=== PATIENT | male | born 1990 | race Caucasian/White ===

== ENCOUNTER 2018-06-25 22:00 | Observation (INO) ==
--- NOTE | 2018-06-25 22:32 | Emergency Department Note ---
Disposition Clinical Impression: Suicidal ideation Schizophrenia Qualifiers: Schizophrenia type: unspecified Qualified Code(s): F20.9 - Schizophrenia, unspecified Disposition: Still a Patient Condition: Fair Forms: ED Satisfaction Letter General Adult HPI - General Chief complaint: ED Psychiatric Symptoms Stated complaint: SI/Hearing things Time Seen by Provider: 06/25/18 22:12 Source: patient Limitations: no limitations - History of Present Illness HPI Narrative: Patient presents with suicidal thoughts status post suicide attempt today. He said that he tried to hang himself, but did not that he tied to slip through when he tried to hang himself. He then tried to wrap fishing wire around his wrists, but that failed as well. He says the voices are not telling him to kill himself but cannot really tell me what the voices are saying. He has been dosed with schizophrenia, is on Abilify and other medications, says they asked to make symptoms worse rather than helping him. Says he never misses doses. Denies any alcohol or drug use today or in the recent past. He does have a history of suicide attempts in the past. Denies any physical or medical issues other than his chronic left knee pain which is unchanged. No fever, rash, pain Pain Scale: 8 - Related Data Home Medications Medication Instructions Recorded Confirmed Aripiprazole [Abilify] 15 mg PO DAILY 06/25/18 06/25/18 Doxepin [Sinequan] 25 mg PO HS 06/25/18 06/25/18 Quetiapine Fumarate [Seroquel] 50 mg PO HS 06/25/18 06/25/18 RisperiDONE [Risperdal] 0.5 mg PO BID 06/25/18 06/25/18 hydrOXYzine HCl [Hydroxyzine HCl] 25 mg PO Q6H PRN 06/25/18 06/25/18 Allergies Allergy/AdvReac Type Severity Reaction Status Date / Time No Known Allergies Allergy Verified 06/25/18 22:05 All systems ED: reviewed and negative except as stated. (i DID ASK) Past Medical History - Past Medical History Medical history: Reports: hepatitis, other Surgical history: Reports: no surgical history Psychiatric history: Reports: anxiety, ADHD, depression, PTSD, other - Social History Smoking Status: Current every day smoker Smokeless Tobacco Status: No Alcohol use: Reports: none Drug use: Reports: marijuana, methamphetamine, IV Drug Use Physical Exam Vital signs noted, please see nurses notes. General: Well-developed, well-nourished patient sitting up in bed who appears non-toxic. Head: Atraumatic, normocephalic. Eyes: Sclera anicteric. ENT: Mucous membranes moist. Respiratory: Normal respiratory pattern without respiratory distress. Skin: Warm and dry, no appreciable rash. Neurological: Awake and alert with normal speech, gait and mental status. No focal deficits or lateralizing signs. Musculoskeletal: No swelling, erythema, warmth or tenderness to the left knee. Psychiatric: Good eye contact. He is calm and cooperative with the interview. - General Limitations: no limitations General appearance: alert Course Vital Signs Temperature 97.9 F 06/25/18 22:05 Pulse Rate 118 06/25/18 22:05 Respiratory Rate 20 06/25/18 22:05 Blood Pressure 131/94 06/25/18 22:05 O2 Sat by Pulse Oximetry 97 06/25/18 22:05 Temperature 97.9 F 06/25/18 22:18 Pulse Rate 118 06/25/18 22:18 Respiratory Rate 20 06/25/18 22:18 Blood Pressure 131/94 06/25/18 22:18 O2 Sat by Pulse Oximetry 97 06/25/18 22:18 Oxygen Delivery Oxygen Delivery Room Air Medical Decision Making - Lab Data Result diagrams: 06/25/18 22:35 06/25/18 22:35 Lab Results 06/25/18 06/25/18 06/25/18 Range/Units 22:27 22:27 22:35 WBC 12.6 H (4.3-11.1) K/mcL RBC 5.43 (4.19-5.50) M/mcL Hgb 14.1 (12.9-16.9) g/dL Hct 42.4 (37.5-50.1) % MCV 78.1 L (83.0-100.0) fL MCH 26.0 L (28.0-33.3) pg MCHC 33.3 (31.6-35.5) g/dL RDW 14.1 (11.5-14.5) % Plt Count 263 (140-400) K/mcL MPV 8.8 L (9.4-12.4) fL Immature Gran % 0.3 (0-4) % Seg Neutrophils % 67.4 % Lymphocytes % 22.4 % Monocytes % 7.6 % Eosinophils % 1.6 % Basophils % 0.7 % Neutrophils # 8.5 (1.6-8.9) K/mcL Lymphocytes # 2.8 (0.6-4.6) K/mcL Monocytes # 1.0 (0.0-1.3) K/mcL Eosinophils # 0.2 (0.0-0.6) K/mcL Basophils # 0.1 (0.0-0.2) K/mcL Sodium (136-145) mEq/L Potassium (3.5-5.1) mEq/L Chloride (98-107) mEq/L Carbon Dioxide (23-29) mEq/L BUN (6-20) mg/dL Creatinine (0.70-1.30) mg/dL Est GFR ( Amer) (> 60) Est GFR (Non-Af Amer) (> 60) BUN/Creatinine Ratio (6-26) Glucose (70-105) mg/dL Calculated Osmolality (280-300) Calcium (8.6-10.3) mg/dL Urine Color Yellow (Yellow) Urine Clarity Clear (Clear) Urine pH 6.0 (5.0-8.0) pH Units Ur Specific [place] 1.008 L (1.010-1.025) Urine Protein Negative (Neg-Trace) mg/dL Urine Glucose (UA) Normal (Normal) mg/dL Urine Ketones Negative (Negative) mg/dL Urine Blood Negative (Negative) Urine Nitrite Negative (Negative) Urine Bilirubin Negative (Negative) Urine Urobilinogen Normal (Normal) mg/dL Ur Leukocyte Esterase Negative (Negative) Salicylates (15.0-30.0) mg/dL Urine Opiates Screen Negative (Hlwcmn=360) ng/mL Acetaminophen (10-20) mcg/mL Ur Barbiturates Screen Negative (Mhcbds=834) ng/mL Ur Phencyclidine Scrn Negative (Cutoff=25) ng/mL Ur Amphetamines Screen Negative (Odqksr=4114) ng/mL U Benzodiazepines Scrn Negative (Fkxlvg=906) ng/mL Urine Cocaine Screen Negative (Cutoff= 300) ng/mL U Marijuana (THC) Screen Negative (Cutoff = 50) ng/mL Ur Drug Screen Interp See Below Ethyl Alcohol (Less than 10) mg/dL 06/25/18 Range/Units 22:35 WBC (4.3-11.1) K/mcL RBC (4.19-5.50) M/mcL Hgb (12.9-16.9) g/dL Hct (37.5-50.1) % MCV (83.0-100.0) fL MCH (28.0-33.3) pg MCHC (31.6-35.5) g/dL RDW (11.5-14.5) % Plt Count (140-400) K/mcL MPV (9.4-12.4) fL Immature Gran % (0-4) % Seg Neutrophils % % Lymphocytes % % Monocytes % % Eosinophils % % Basophils % % Neutrophils # (1.6-8.9) K/mcL Lymphocytes # (0.6-4.6) K/mcL Monocytes # (0.0-1.3) K/mcL Eosinophils # (0.0-0.6) K/mcL Basophils # (0.0-0.2) K/mcL Sodium 140 (136-145) mEq/L Potassium 3.6 (3.5-5.1) mEq/L Chloride 108 H (98-107) mEq/L Carbon Dioxide 23 (23-29) mEq/L BUN 15 (6-20) mg/dL Creatinine 0.87 (0.70-1.30) mg/dL Est GFR ( Amer) > 60 (> 60) Est GFR (Non-Af Amer) > 60 (> 60) BUN/Creatinine Ratio 17 (6-26) Glucose 98 (70-105) mg/dL Calculated Osmolality 291 (280-300) Calcium 9.2 (8.6-10.3) mg/dL Urine Color (Yellow) Urine Clarity (Clear) Urine pH (5.0-8.0) pH Units Ur Specific [place] (1.010-1.025) Urine Protein (Neg-Trace) mg/dL Urine Glucose (UA) (Normal) mg/dL Urine Ketones (Negative) mg/dL Urine Blood (Negative) Urine Nitrite (Negative) Urine Bilirubin (Negative) Urine Urobilinogen (Normal) mg/dL Ur Leukocyte Esterase (Negative) Salicylates < 2.5 L (15.0-30.0) mg/dL Urine Opiates Screen (Umlnwb=952) ng/mL Acetaminophen < 10 L (10-20) mcg/mL Ur Barbiturates Screen (Aubdla=912) ng/mL Ur Phencyclidine Scrn (Cutoff=25) ng/mL Ur Amphetamines Screen (Camtuj=8597) ng/mL U Benzodiazepines Scrn (Jninbq=495) ng/mL Urine Cocaine Screen (Cutoff= 300) ng/mL U Marijuana (THC) Screen (Cutoff = 50) ng/mL Ur Drug Screen Interp Ethyl Alcohol < 10 (Less than 10) mg/dL
[2018-06-25 22:43] LABS: Bilirubin,Urine Negative (Negative); Blood,Urine Negative (Negative); Clarity,Urine Clear (Clear); Color,Urine Yellow (Yellow); Glucose,Urine (UA) Normal (Normal); Ketones,Urine Negative (Negative); Leukocyte Esterase,Urine Negative (Negative); Nitrite,Urine Negative (Negative); Protein,Urine Negative (Neg-Trace); Specific Gravity,Urine 1.008 (1.010-1.025); Urobilinogen,Urine Normal (Normal)
[2018-06-25 22:48] LABS: Basophils # 0.1 K/mcL (0.0-0.2); Basophils % 0.7 %; Eosinophils # 0.2 K/mcL (0.0-0.6); Eosinophils % 1.6 %; Hematocrit 42.4 % (37.5-50.1); Hemoglobin 14.1 g/dL (12.9-16.9); Immature Granulocytes % 0.3 % (0-4); Lymphocytes # 2.8 K/mcL (0.6-4.6); Lymphocytes % 22.4 %; Mean Corpuscular HGB Conc 33.3 g/dL (31.6-35.5); Mean Corpuscular Volume 78.1 fL (83.0-100.0); Mean Platelet Volume 8.8 fL (9.4-12.4); Monocytes % 7.6 %; Neutrophils # 8.5 K/mcL (1.6-8.9); Platelet Count 263 K/mcL (140-400); Red Blood Count 5.43 M/mcL (4.19-5.50); Red Cell Distribution Width 14.1 % (11.5-14.5); Segmented Neutrophils % 67.4 %
[2018-06-25 22:56] LABS: Amphetamine Screen,Urine Negative ng/mL (Cutoff=1000); Barbiturate Screen,Urine Negative ng/mL (Cutoff=200); Benzodiazepines Screen,Urine Negative ng/mL (Cutoff=200); Cannabinoid Screen,Urine Negative ng/mL (Cutoff = 50); Cocaine Screen,Urine Negative ng/mL (Cutoff= 300); Opiate Screen,Urine Negative ng/mL (Cutoff=300); Phencyclidine Screen,Urine Negative ng/mL (Cutoff=25)
[2018-06-25 23:07] LABS: Acetaminophen < 10 mcg/mL (10-20); BUN/Creatinine Ratio 17 (6-26); Blood Urea Nitrogen 15 mg/dL (6-20); Calcium 9.2 mg/dL (8.6-10.3); Carbon Dioxide 23 mEq/L (23-29); Chloride 108 mEq/L (98-107); Ethanol < 10 mg/dL (Less than 10); Glucose 98 mg/dL (70-105); Osmolality,Calculated 291 (280-300); Potassium 3.6 mEq/L (3.5-5.1); Salicylate < 2.5 mg/dL (15.0-30.0); Sodium 140 mEq/L (136-145); eGFR For Non-African Americans > 60 (> 60)
--- NOTE | 2018-06-26 00:41 | Emergency Department Note ---
Disposition Clinical Impression: Suicidal ideation Schizophrenia Qualifiers: Schizophrenia type: unspecified Qualified Code(s): F20.9 - Schizophrenia, unspecified Disposition: Admitted As Inpatient Condition: Fair Referrals: NONE,PCP [Primary Care Provider] - Forms: ED Satisfaction Letter General Adult HPI - General Chief complaint: ED Psychiatric Symptoms Stated complaint: SI/Hearing things Time Seen by Provider: 06/25/18 22:12 Source: patient Limitations: no limitations - History of Present Illness Pain Scale: 8 - Related Data Home Medications Medication Instructions Recorded Confirmed Aripiprazole [Abilify] 15 mg PO DAILY 06/25/18 06/25/18 Doxepin [Sinequan] 25 mg PO HS 06/25/18 06/25/18 Quetiapine Fumarate [Seroquel] 50 mg PO HS 06/25/18 06/25/18 RisperiDONE [Risperdal] 0.5 mg PO BID 06/25/18 06/25/18 hydrOXYzine HCl [Hydroxyzine HCl] 25 mg PO Q6H PRN 06/25/18 06/25/18 Allergies Allergy/AdvReac Type Severity Reaction Status Date / Time No Known Allergies Allergy Verified 06/25/18 22:05 Past Medical History - Past Medical History Medical history: Reports: hepatitis, other Surgical history: Reports: no surgical history Psychiatric history: Reports: anxiety, ADHD, depression, PTSD, other - Social History Smoking Status: Current every day smoker Smokeless Tobacco Status: No Alcohol use: Reports: none Drug use: Reports: marijuana, methamphetamine, IV Drug Use Physical Exam - General Limitations: no limitations General appearance: alert Course Vital Signs Temperature 97.9 F 06/25/18 22:05 Pulse Rate 118 06/25/18 22:05 Respiratory Rate 20 06/25/18 22:05 Blood Pressure 131/94 06/25/18 22:05 O2 Sat by Pulse Oximetry 97 06/25/18 22:05 Temperature 97.9 F 06/25/18 22:18 Pulse Rate 118 06/25/18 22:18 Respiratory Rate 20 06/25/18 22:18 Blood Pressure 131/94 06/25/18 22:18 O2 Sat by Pulse Oximetry 97 06/25/18 22:18 Oxygen Delivery Oxygen Delivery Room Air Medical Decision Making - Lab Data Result diagrams: 06/25/18 22:35 06/25/18 22:35 Lab Results 06/25/18 06/25/18 06/25/18 Range/Units 22:27 22:27 22:35 WBC 12.6 H (4.3-11.1) K/mcL RBC 5.43 (4.19-5.50) M/mcL Hgb 14.1 (12.9-16.9) g/dL Hct 42.4 (37.5-50.1) % MCV 78.1 L (83.0-100.0) fL MCH 26.0 L (28.0-33.3) pg MCHC 33.3 (31.6-35.5) g/dL RDW 14.1 (11.5-14.5) % Plt Count 263 (140-400) K/mcL MPV 8.8 L (9.4-12.4) fL Immature Gran % 0.3 (0-4) % Seg Neutrophils % 67.4 % Lymphocytes % 22.4 % Monocytes % 7.6 % Eosinophils % 1.6 % Basophils % 0.7 % Neutrophils # 8.5 (1.6-8.9) K/mcL Lymphocytes # 2.8 (0.6-4.6) K/mcL Monocytes # 1.0 (0.0-1.3) K/mcL Eosinophils # 0.2 (0.0-0.6) K/mcL Basophils # 0.1 (0.0-0.2) K/mcL Sodium (136-145) mEq/L Potassium (3.5-5.1) mEq/L Chloride (98-107) mEq/L Carbon Dioxide (23-29) mEq/L BUN (6-20) mg/dL Creatinine (0.70-1.30) mg/dL Est GFR ( Amer) (> 60) Est GFR (Non-Af Amer) (> 60) BUN/Creatinine Ratio (6-26) Glucose (70-105) mg/dL Calculated Osmolality (280-300) Calcium (8.6-10.3) mg/dL Urine Color Yellow (Yellow) Urine Clarity Clear (Clear) Urine pH 6.0 (5.0-8.0) pH Units Ur Specific [place] 1.008 L (1.010-1.025) Urine Protein Negative (Neg-Trace) mg/dL Urine Glucose (UA) Normal (Normal) mg/dL Urine Ketones Negative (Negative) mg/dL Urine Blood Negative (Negative) Urine Nitrite Negative (Negative) Urine Bilirubin Negative (Negative) Urine Urobilinogen Normal (Normal) mg/dL Ur Leukocyte Esterase Negative (Negative) Salicylates (15.0-30.0) mg/dL Urine Opiates Screen Negative (Ooglba=088) ng/mL Acetaminophen (10-20) mcg/mL Ur Barbiturates Screen Negative (Cxifmr=934) ng/mL Ur Phencyclidine Scrn Negative (Cutoff=25) ng/mL Ur Amphetamines Screen Negative (Klgsto=3526) ng/mL U Benzodiazepines Scrn Negative (Mtvojx=177) ng/mL Urine Cocaine Screen Negative (Cutoff= 300) ng/mL U Marijuana (THC) Screen Negative (Cutoff = 50) ng/mL Ur Drug Screen Interp See Below Ethyl Alcohol (Less than 10) mg/dL 06/25/18 Range/Units 22:35 WBC (4.3-11.1) K/mcL RBC (4.19-5.50) M/mcL Hgb (12.9-16.9) g/dL Hct (37.5-50.1) % MCV (83.0-100.0) fL MCH (28.0-33.3) pg MCHC (31.6-35.5) g/dL RDW (11.5-14.5) % Plt Count (140-400) K/mcL MPV (9.4-12.4) fL Immature Gran % (0-4) % Seg Neutrophils % % Lymphocytes % % Monocytes % % Eosinophils % % Basophils % % Neutrophils # (1.6-8.9) K/mcL Lymphocytes # (0.6-4.6) K/mcL Monocytes # (0.0-1.3) K/mcL Eosinophils # (0.0-0.6) K/mcL Basophils # (0.0-0.2) K/mcL Sodium 140 (136-145) mEq/L Potassium 3.6 (3.5-5.1) mEq/L Chloride 108 H (98-107) mEq/L Carbon Dioxide 23 (23-29) mEq/L BUN 15 (6-20) mg/dL Creatinine 0.87 (0.70-1.30) mg/dL Est GFR ( Amer) > 60 (> 60) Est GFR (Non-Af Amer) > 60 (> 60) BUN/Creatinine Ratio 17 (6-26) Glucose 98 (70-105) mg/dL Calculated Osmolality 291 (280-300) Calcium 9.2 (8.6-10.3) mg/dL Urine Color (Yellow) Urine Clarity (Clear) Urine pH (5.0-8.0) pH Units Ur Specific [place] (1.010-1.025) Urine Protein (Neg-Trace) mg/dL Urine Glucose (UA) (Normal) mg/dL Urine Ketones (Negative) mg/dL Urine Blood (Negative) Urine Nitrite (Negative) Urine Bilirubin (Negative) Urine Urobilinogen (Normal) mg/dL Ur Leukocyte Esterase (Negative) Salicylates < 2.5 L (15.0-30.0) mg/dL Urine Opiates Screen (Hxiesu=147) ng/mL Acetaminophen < 10 L (10-20) mcg/mL Ur Barbiturates Screen (Wuzjhv=323) ng/mL Ur Phencyclidine Scrn (Cutoff=25) ng/mL Ur Amphetamines Screen (Drbbul=8471) ng/mL U Benzodiazepines Scrn (Jpizks=298) ng/mL Urine Cocaine Screen (Cutoff= 300) ng/mL U Marijuana (THC) Screen (Cutoff = 50) ng/mL Ur Drug Screen Interp Ethyl Alcohol < 10 (Less than 10) mg/dL
[2018-06-26] MEDS ORDERED: *HR* LORazepam 2 MG/ML VIAL IM PRN (01:24)
[2018-06-26] MEDS ORDERED: Mag Hydrox/Al Hydrox/Simeth 30 ML UDC PO PRN (01:24)
[2018-06-26] MEDS ORDERED: Ibuprofen 400 MG TABLET PO PRN (01:24)
[2018-06-26] MEDS ORDERED: Nicotine 2 MG GUM BC PRN (01:24)
[2018-06-26] MEDS ORDERED: *HR* LORazepam 1 MG TABLET PO PRN (01:24)
[2018-06-26] MEDS ORDERED: Haloperidol Lactate 5 MG/ML VIAL IM PRN (01:24)
[2018-06-26] MEDS ORDERED: MOM Conc 10 ML UD.LIQ PO PRN (01:24)
[2018-06-26] MEDS ORDERED: hydrOXYzine pamoate 25 MG CAPSULE PO PRN (01:28)
[2018-06-26] MEDS: risperiDONE 0.25 MG TABLET PO SCH ×2 (01:54→09:51)
[2018-06-26] MEDS ORDERED: ARIPiprazole 10 MG TABLET PO SCH (09:00)
[2018-06-26 09:49] VITALS: BP 123/84
--- NOTE | 2018-06-26 10:45 | Psychiatry History & Physical ---
Addendum entered and electronically signed by Shivani Coronado 06/26/18 13:30: Please note patient's affect was erroneously stated. His affect was constricted. He also had decreased prosody. Original Note: Date of Encounter: 06/26/18 Time of Encounter: 10:40 History of Present Illness Patient Stated Chief Complaint: "not knowing what medications I was on" Medicare Admission Attestation: For traditional Medicare patients the provided hospital inpatient services are reasonable and necessary and in the case of services not specified as inpatient-only under 42 CFR 419.22 (n), that they are appropriately provided as inpatient services in accordance 42 CFR 412.3. For Critical Access Hospital the patient may reasonably be expected to be discharged or transferred to a hospital within 96 hours after admission to the Critical Access Hospital. Admitted From: Emergency Dept Plans for Post Hospital Care: Home History of Present Illness: Mr. Quiñonez is a 28 year old male with a past psychiatric history of anxiety and schizophrenia from this hospital, who presented with suicidal ideation. ED report say that he said he tried to hang himself and then tried to cut his wrists by cutting off circulation with tight bands. He also reported auditory hallucinations yesterday of hearing "voices." He denies that he attempted suicide, stating that he only "thought of it." He reports that he would only suicide by an overdose on carfentanyl, and reports he did not say he suicided in the ED. He denies that he is depressed, stating that he is not always depressed when he has SI. He reports that he does not know why he was having SI. He cannot give an explanation as to a stressor or a thought that initiated the suicidal ideation. He reports getting katty out of life "sometimes," reporting that he does not know why he does not feel more katty. He denies issues with sleep and appetite. He denies issues with concentration and energy. He denies feelings of hopelessness or worthlessness. He denies current SI, HI, AH, and VH. He reports that he has had AH and VH before due to substance use. He reports that he "barely" has thoughts of suicide. He denies significant intent when he does thoughts of suicide. He denies that he has ever attempted suicide. He does report a chronic plan of overdosing on carfentanyl. He denies having access to firearms. He reports protective factors of his "son" who he does not see often. Patient's mental health has not been treated in the last 8 years. He reports that he has been sober for 7 months and has been at an inpatient rehabilitation program for the past few weeks but left. He has been homeless for 8 months and is attempting to get to his aunt's home, who has agreed to let him live with her. Past Med Surg Social Fam HX - Past Medical History Source: patient Medical history: hepatitis (Hepatitis C) - Past Psychiatric History Psychiatric history: Reports: schizophrenia, previous psychiatric hospitalization Past psychiatric history details: First contract: teenager but does not know why Past Diagnoses: "I have no idea" Current Provider: Lisseth Piña; does not know providers Past hospitalizations: 2 times, the last time being last year Suicide history. Reports intermittent but not often SI without knowledge of triggers. 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 He reports having 1 son, who he sees occasionally. He denies having a job. He reports his highest level of education is the 9th grade. He identifies aa a Satanist. He denies a history of legal issues. He denies a history of sexual, physical, or emotional abuse. Medications & Allergies Aripiprazole [Abilify] 15 mg PO DAILY 06/25/18 [History] Quetiapine Fumarate [Seroquel] 50 mg PO HS 06/25/18 [History] hydrOXYzine HCl [Hydroxyzine HCl] 25 mg PO Q6H PRN 06/25/18 [History] Allergy/AdvReac Type Severity Reaction Status Date / Time No Known Allergies Allergy Verified 06/25/18 22:05 Review of Systems Constitutional: Denies: fever, chills, weakness, weight change, night sweats Eyes: Denies: eye pain, eye discharge, vision change Ears, Nose, Throat: Denies: ear pain, throat pain, dental pain, hearing loss, epistaxis, congestion, dysphagia Cardiovascular: Denies: chest pain, palpitations, dyspnea on exertion, orthopnea, edema, syncope Respiratory: Denies: cough, dyspnea, wheezes, hemoptysis, stridor, sputum production Gastrointestinal: Denies: abdominal pain, nausea, vomiting, diarrhea, constipation, hematemisis, melena, hematochezia Genitourinary male: Denies: urgency, dysuria, frequency, hematuria, discharge, testicular pain, genital lesions Musculoskeletal: Denies: back pain, joint swelling, joint pain, myalgia Integumentary: Denies: rash, lesions, pruritus, breast mass, nipple discharge Neurological: Reports: confusion (Fogginess due to medications). Denies: headache, weakness, numbness, paresthesias, memory loss, abnormal gait, vertigo Psychiatric: Reports: anhedonia, confusion (Fogginess due to medications). Denies: depression, anxiety, abnormal sleep pattern, suicidal ideation, change in appetite, homicidal ideation, auditory hallucinations, visual hallucinations, difficulty concentrating, hopelessness Endocrine: Denies: fatigue, heat or cold intolerance, polydipsia, polyuria Hematologic/Lymphatic: Denies: easy bleeding, easy bruising, lymphadenopathy Allergic/Immunologic: Denies: facial swelling, urticaria, itchy eyes Exam - HEENT Head exam IM: Present: atraumatic Eye exam IM: Present: EOMI, normal appearance ENT exam IM: Present: normal exam - Neurological Neurological exam: Present: alert - Respiratory Respiratory exam IM: Present: CTAB (grossly. respirations rhythmic) - GI/Abdominal GI/Abdominal exam IM: Present: soft. Absent: tenderness - Extremities Extremities exam IM: Present: normal inspection - Skin Skin exam IM: Present: dry - Constitutional Vitals: Temp Pulse Resp BP Pulse Ox 98.3 F 114 16 123/84 95 06/26/18 09:00 06/26/18 09:00 06/26/18 09:00 06/26/18 09:00 06/26/18 09:00 General appearance: age & developmentally appropriate, well-groomed, well-n ourished - Musculoskeletal Gait: other (not assessed) Station: relaxed Strength & Tone: normal for patient (grossly) - Psychiatric Patient Orientation: Yes Person, Yes Time, Yes Place, Yes Circumstance Level of alertness: Alert, Follows commands Behavior: calm, cooperative Psychomotor activity: Normal Eye Contact: Maintains Eye Contact Mood Description: Euthymic/stable Affect description: congruent with mood, full range Speech Volume: Normal Speech pattern: normal rate, normal rhythm, normal tone, fluent, spontaneous Language & Vocabulary: consistent with education Thought Process: Linear, Goal Oriented Thought Content: No Suicidal ideation, No Homicidal ideation, No Overt delusions Perceptual Disturbances: No Auditory hallucinations, No Visual hallucinations Attention Span Ability: Capable of Focused Attention Memory Description: Grossly Intact Patient Reliability: Reliable Historian Fund of knowledge: Yes abstraction ability, Yes average, Yes aware of current events Intelligence Estimate: Average Judgment: Limited Insight: Partial Results - Drug Levels and Toxicology Drug Levels and Toxicology: Drug Levels and Toxicity 06/25/18 06/25/18 22:27 22:35 Urine Opiates Screen Negative Acetaminophen < 10 L Ur Barbiturates Screen Negative Ur Phencyclidine Scrn Negative Ur Amphetamines Screen Negative U Benzodiazepines Scrn Negative Urine Cocaine Screen Negative U Marijuana (THC) Screen Negative Ethyl Alcohol < 10 - Labs Labs: Laboratory Last Values WBC 12.6 K/mcL (4.3-11.1) H 06/25/18 22:35 RBC 5.43 M/mcL (4.19-5.50) 06/25/18 22:35 Hgb 14.1 g/dL (12.9-16.9) 06/25/18 22:35 Hct 42.4 % (37.5-50.1) 06/25/18 22:35 MCV 78.1 fL (83.0-100.0) L 06/25/18 22:35 MCH 26.0 pg (28.0-33.3) L 06/25/18 22:35 MCHC 33.3 g/dL (31.6-35.5) 06/25/18 22:35 RDW 14.1 % (11.5-14.5) 06/25/18 22:35 Plt Count 263 K/mcL (140-400) 06/25/18 22:35 MPV 8.8 fL (9.4-12.4) L 06/25/18 22:35 Immature Gran % 0.3 % (0-4) 06/25/18 22:35 Seg Neutrophils % 67.4 % 06/25/18 22:35 Lymphocytes % 22.4 % 06/25/18 22:35 Monocytes % 7.6 % 06/25/18 22:35 Eosinophils % 1.6 % 06/25/18 22:35 Basophils % 0.7 % 06/25/18 22:35 Neutrophils # 8.5 K/mcL (1.6-8.9) 06/25/18 22:35 Lymphocytes # 2.8 K/mcL (0.6-4.6) 06/25/18 22:35 Monocytes # 1.0 K/mcL (0.0-1.3) 06/25/18 22:35 Eosinophils # 0.2 K/mcL (0.0-0.6) 06/25/18 22:35 Basophils # 0.1 K/mcL (0.0-0.2) 06/25/18 22:35 Sodium 140 mEq/L (136-145) 06/25/18 22:35 Potassium 3.6 mEq/L (3.5-5.1) 06/25/18 22:35 Chloride 108 mEq/L (98-107) H 06/25/18 22:35 Carbon Dioxide 23 mEq/L (23-29) 06/25/18 22:35 BUN 15 mg/dL (6-20) 06/25/18 22:35 Creatinine 0.87 mg/dL (0.70-1.30) 06/25/18 22:35 Est GFR ( Amer) > 60 (> 60) 06/25/18 22:35 Est GFR (Non-Af Amer) > 60 (> 60) 06/25/18 22:35 BUN/Creatinine Ratio 17 (6-26) 06/25/18 22:35 Glucose 98 mg/dL (70-105) 06/25/18 22:35 Calculated Osmolality 291 (280-300) 06/25/18 22:35 Calcium 9.2 mg/dL (8.6-10.3) 06/25/18 22:35 Urine Color Yellow (Yellow) 06/25/18 22:27 Urine Clarity Clear (Clear) 06/25/18 22:27 Urine pH 6.0 pH Units (5.0-8.0) 06/25/18 22:27 Ur Specific [place] 1.008 (1.010-1.025) L 06/25/18 22: Urine Protein Negative mg/dL (Neg-Trace) 06/25/18: Urine Glucose (UA) Normal mg/dL (Normal) 06/25/18 22: Urine Ketones Negative mg/dL (Negative) 06/25/18 22: Urine Blood Negative (Negative) 06/25/18: Urine Nitrite Negative (Negative) 06/25/18 22: Urine Bilirubin Negative (Negative) 06/25/18 22: Urine Urobilinogen Normal mg/dL (Normal) 06/25/18: Ur Leukocyte Esterase Negative (Negative) 06/25/18: Salicylates < 2.5 mg/dL (15.0-30.0) L 06/25/18 22:35 Urine Opiates Screen Negative ng/mL (Pcwoyt=042) 06/25/18: Acetaminophen < 10 mcg/mL (10-20) L 06/25/18 22:35 Ur Barbiturates Screen Negative ng/mL (Divhdt=367) 06/25/18 22:27 Ur Phencyclidine Scrn Negative ng/mL (Cutoff=25) 06/25/18 22: Ur Amphetamines Screen Negative ng/mL (Rgnwip=5561) 06/25/18 22:27 U Benzodiazepines Scrn Negative ng/mL (Liqytz=777) 06/25/18 22:27 Urine Cocaine Screen Negative ng/mL (Cutoff= 300) 06/25/18 22:27 U Marijuana (THC) Screen Negative ng/mL (Cutoff = 50) 06/25/18 22:27 Ur Drug Screen Interp See Below 06/25/18 22: Ethyl Alcohol < 10 mg/dL (Less than 10) 06/25/18 22:35 - Impressions None noted this a.m. Assessment and Plan (1) Other specified depressive episodes Status: Acute Plan: Admit inpatient for safety and stabilization, Close observation, Suicide Precautions per unit protocol, Encourage participation in unit milieu, Group Therapy, Monitor sleep, Monitor appetite Additional Plan: -Patient is currently denying suicidal ideation as well as an attempt yesterday. Patient is currently in the following up with Lisseth Piña and has an appointment in 2 days, which he is anticipating. He denies a history of suicide attempt and reports positive protective factors. She also is future oriented, showing anticipation to getting to his aunt's house. As such, he is seen not to be a high risk for suicide at this time. He is wanting to leave the unit, which is appropriate, as he does not meet criteria for further admittance. -It appears that patient was started on several medications up on his walk-in for mental health. He reports confusion on this medication regimen. As such, the following medication changes were made: -discontinue doxepin and risperidone. These medications are redundant to other medications started. -Continue quetiapine 50 mg by mouth daily at bedtime for mood -Continue aripiprazole 15 mg by mouth daily for mood -Continue hydroxyzine 25 mg by mouth every 6 hours or when necessary for anxiety -Encourage group participation on the unit -Will find transport to aunt's home upon discharge -Patient has a follow-up appointment in 2 days with mental health -Will discharge today - Risks, benefits, side effects, alternatives discussed w/pt: Yes Patient agreeable to treatment: Yes Plans for Post Hospital Care: Home Estimated Length of Stay (Days): 1 - Attending Attestation I examined this patient and my medical decision-making was reviewed with the Resident Physician. I agree with the documented findings, disposition and treatment plan as described except to the extent set forth below. Client presented to the ER yesterday stating he had questions about his medications but denied SI/HI and had follow up in place so he was discharged. Returned to the ER several hours later and stated he was suicidal so he was admitted to . Today client denies SI/HI/AH/VH. States he endorsed SI yesterday because he needed to be somewhere "to get my head straight." Client states he was in [facility] for AOD treatment for the last two weeks but did not like the program so he left. Homeless since leaving the program and wanting to return to live with family in [place] but had no means to get there. No psych treatment in 8 years but went to a walk in appointment approx a week ago due to depressive symptoms. According to client he was started on five meds at once.....Risperdal, Abilify, Seroquel, Doxepin, and Vistaril. [place] confused on med regimen. States [facility] was giving him these meds for the last week but that they would give him differing numbers of pills on different days. Presented to the ER for help with med regimen. Decided to return to ER after he was initially discharged because he had nowhere else to go and he was still confused about medications. Discussed simplifying regimen and client agreeable. Has follow up with [facility] on but did not want to wait until then to be seen. Current plan to stop Risperdal and Doxepin. Will continue with Abilify, low dose Seroquel for sleep and Vistaril prn for anxiety. Staff spoke with aunt in [place] who is happy to have client live with her. She denies having any safety concerns. Client states he has transportation to get to his appointment on from her house. 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 States aunt's house is a safe place for him.
--- NOTE | 2018-06-26 13:16 | Discharge Summary ---
Date of Encounter: 06/26/18 Time of Encounter: 10:40 Diagnosis - Discharge Diagnosis (1) Other specified depressive episodes Priority: Primary Status: Acute Comments: -Suicidal ideation and anhedonia with insufficient symptoms or timing for major depressive disorder or persistent depressive disorder Medications - Discharge Medications Aripiprazole [Abilify] 15 mg PO DAILY 06/25/18 [History] Quetiapine Fumarate [Seroquel] 50 mg PO HS 06/25/18 [History] hydrOXYzine HCl [Hydroxyzine HCl] 25 mg PO Q6H PRN 06/25/18 [History] Allergy/AdvReac Type Severity Reaction Status Date / Time No Known Allergies Allergy Verified 06/25/18 22:05 Results Procedures and tests throughout hospitalization: Completed Lab Orders Category Date Time Status Acetaminophen Stat Lab 06/25/18 22:35 Completed Basic Metabolic Panel Stat Lab 06/25/18 22:35 Completed Complete Blood Count [HEME] Stat Lab 06/25/18 22:35 Completed Drug Screen, Urine [UCHEM] Stat Lab 06/25/18 22:27 Completed Ethanol Stat Lab 06/25/18 22:35 Completed Salicylate Stat Lab 06/25/18 22:35 Completed Urinalysis reflex Microscopic [URIN] Stat Lab 06/25/18 22:27 Completed - Impressions None noted this admission - Additional Comments None noted this admission Provider Date of admission: 06/26/18 00:47 Primary care physician: PCP NONE Consults: None Discharging clinician: Madeleine Lopez Psychiatry Exam - Constitutional Vitals: Temp Pulse Resp BP Pulse Ox 98.3 F 114 16 123/84 95 06/26/18 09:00 06/26/18 09:00 06/26/18 09:00 06/26/18 09:00 06/26/18 09:00 General appearance: age & developmentally appropriate, well-groomed, well- nourished, average Additional observations: Tattoos noted on arms - Musculoskeletal Gait: other (Not assessed) Station: relaxed Strength & Tone: normal for patient (Grossly) - Psychiatric Patient Orientation: Yes Person, Yes Time, Yes Place, Yes Circumstance Level of alertness: Alert, Follows commands Behavior: calm, cooperative Psychomotor activity: Normal Eye Contact: Maintains Eye Contact Mood Description: Euthymic/stable Affect description: congruent with mood, constricted Speech Volume: Normal Speech pattern: normal rate, normal tone, fluent, spontaneous, limited (Mild decrease in prosody) Language & Vocabulary: consistent with education Thought Process: Logical, Linear, Goal Oriented Thought Content: No Suicidal ideation, No Homicidal ideation, No Overt delusions Perceptual Disturbances: No Reacting to internal stimuli, No Auditory hallucinations, No Visual hallucinations Attention Span Ability: Capable of Focused Attention Memory Description: Grossly Intact Patient Reliability: Reliable Historian Fund of knowledge: Yes abstraction ability, Yes aware of current events Intelligence Estimate: Average Judgment: Fair Insight: Partial Hospital Course Hospital course: Mr. Quiñonez is a 28 year old male with a past psychiatric history of anxiety and schizophrenia from this hospital, who presented with suicidal ideation. ED report say that he said he tried to hang himself and then tried to cut his wrists by cutting off circulation with tight bands. He also reported auditory hallucinations yesterday of hearing "voices." He denies that he attempted suicide, stating that he only "thought of it." He reports that he would only suicide by an overdose on carfentanyl, and reports he did not say he suicided in the ED. He denies that he is depressed, stating that he is not always depressed when he has SI. He reports that he does not know why he was having SI. He cannot give an explanation as to a stressor or a thought that initiated the suicidal ideation. He reports getting katty out of life "sometimes," reporting that he does not know why he does not feel more katty. He denies issues with sleep and appetite. He denies issues with concentration and energy. He denies feelings of hopelessness or worthlessness. He denies current SI, HI, AH, and VH. He reports that he has had AH and VH before due to substance use. The morning after admission, patient denying suicidal ideation as well as an attempt the night of admission. As patient denies a history of suicide attempt and reports positive protective factors, was future oriented, showing anticipation to getting to his aunt's house, and is anticipating a visit with his outpatient provider in 2 days, he was seen not to be a high risk for suicide. As such, he was discharged. Patient reported starting several medications one week ago at the same time, including aripiprazole 15 mg daily, doxepin 25 mg daily at bedtime, hydroxyzine 25 mg by mouth every 6 hours when necessary, quetiapine 50 mg daily at bedtime, and risperidone 0.5 mg by mouth twice a day. She reports increased confusion on these medications once started. As several these medications are redundant, there were changes made to the medication regimen. Further changes are likely required once seen by outpatient, including recommendation to taper patient to antipsychotic monotherapy. The following medication changes were made: -discontinue doxepin and risperidone. These medications are redundant to other medications started. -Continue quetiapine 50 mg by mouth daily at bedtime for mood -Continue aripiprazole 15 mg by mouth daily for mood -Continue hydroxyzine 25 mg by mouth every 6 hours or when necessary for anxiety Patient was educated of his diagnosis and the risk-benefit side effects of this alternative treatment options and was monitored for responsiveness and side effects. Mood anxiety sleep and appetite interest improved as did future orientation. Self-harm thoughts subsided, thinking cleared, and mood stabilized. Patient was able to attend both individual and group therapy sessions as well as meeting with the psychiatrist daily and urged to discuss any medication or treatment issues or other concerns. The patient was educated primarily by verbal means about their diagnosis and manifestations in their life. The option for treatment including group and individual therapy programming was offered to the patient in the use of medications with all their potential risks, benefits, and side effects were discussed with the patient at length. The patient was given the opportunity to ask questions and was noted to participate in the treatment in the planning process. The patient felt ready and eager to be discharged from the inpatient psychiatric unit to continue on with treatment as an outpatient. The patient agreed that is they were safe for this disposition. The patient was considered to be able to participate in informed consent and decision making with respect to medical, legal, and financial issues of the time of discharge. At the time of discharge the patient adamantly denied any concerns for lethality including suicidal or homicidal ideations or plans and was future oriented toward ongoing mental health care, medical follow-up and sobriety. Time spent discussing smoking cessation with patient: 3 to 10 minutes Does patient wish to continue nicotine replacement upon disc: No - Time Spent with Patient Total time spent providing and/or coordinating discharge services: Greater than 30 minutes Greater than 30 minutes Specific discharge activities: Interval history reviewed. Available labs reviewed . Psychotherapy provided. Patient had an opportunity to ask questions and address concerns. Patient was in agreement with the treatment plan. The risks benefits and side effects of medications were discussed with the patient, including alternatives and treatment. The patient was educated on the abstaining from any alcohol or illicit substances, following up with all scheduled appointments, and taking all medications as prescribed. The patient was educated to participate in substance abuse meetings. Assessment and Plan - Patient/Caregiver Discharge Instructions Activity: resume usual activities as tolerated Diet: regular diet Additional Instructions: Continue current medications. Follow up with outpatient mental health. Encourage continued therapy in a group or individual setting. The patient was discharged to aunt's home. - Follow up Plan Follow up with: Lisseth Rodgers [Outside] - 06/28/18 1:30 pm (Please follow up with your appointment on June 28 at 1:30 PM. Please call the office as soon as possible if you are unable to make this appointment.) Functional capacity at discharge: independent ambulation Overall status at discharge: Stable Disposition: Home, Self-Care Quality - Multiple Antipsychotics Patient discharged on 2 or more antipsychotic medications: Yes - Justification Documentation of: Recommended plan to taper to monotherapy (Upon outpatient follow-up. Additional antipsychotic was discontinued this admission.) - Attending Attestation I examined this patient and my medical decision-making was reviewed with the Resident Physician. I agree with the documented findings, disposition and treatment plan as described except to the extent set forth below. Client presented to the ER yesterday stating he had questions about his medications but denied SI/HI and had follow up in place so he was discharged. Returned to the ER several hours later and stated he was suicidal so he was admitted to . Today client denies SI/HI/AH/VH. States he endorsed SI yesterday because he needed to be somewhere "to get my head straight." Client states he was in [facility] for AOD treatment for the last two weeks but did not like the program so he left. Homeless since leaving the program and wanting to return to live with family in [place] but had no means to get there. No psych treatment in 8 years but went to a walk in appointment approx a week ago due to depressive symptoms. According to client he was started on five meds at once.....Risperdal, Abilify, Seroquel, Doxepin, and Vistaril. Falcon confused on med regimen. States [facility] was giving him these meds for the last week but that they would give him differing numbers of pills on different days. Presented to the ER for help with med regimen. Decided to return to ER after he was initially discharged because he had nowhere else to go and he was still confused about medications. Discussed simplifying regimen and client agreeable. Has follow up with [facility] on but did not want to wait until then to be seen. Current plan to stop Risperdal and Doxepin. Will continue with Abilify, low dose Seroquel for sleep and Vistaril prn for anxiety. Staff spoke with aunt in [place] who is happy to have client live with her. She denies having any safety concerns. Client states he has transportation to get to his appointment on from her house. 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 States aunt's house is a safe place for him. Total time spent with client greater than 30 minutes. Procedures - Procedures Procedures: Medication Management, Crisis Stabilization, Supportive Therapy, Group Therapy, Psychoeducational Therapy Other Procedures: None
== END 2018-06-26 13:05 | disposition home or self-care (01) ==
LOC: 1ANU 22:00 → EMEROOARM 22:00 → 1ANU 06-26 00:58
PROVIDERS: ADMIT Psychiatry & Neurology Psychiatry; ATTEND Psychiatry & Neurology Psychiatry